=== PATIENT | female | born 1975 | race Caucasian/White ===

== ENCOUNTER 2020-02-29 15:57 | Outpatient (CLI) | payer BC, SELFPAY ==
--- NOTE | ~2020-02-29 | XR_ITS ---
EXAMINATION: XR knee LT 3V DATE: 02/29/2020 16:29 INDICATION: Left knee injury and pain. TECHNIQUE: 3 views of left knee were obtained. COMPARISON: Left knee radiographs 05/17/2005 FINDINGS: Bone alignment is normal. No fracture. There is mild tricompartmental osteoarthritis. There is a small knee joint effusion. IMPRESSION: 1. Mild left knee osteoarthritis. 2. Small left knee joint effusion. Reviewed, dictated and finalized at location A.
== END 2020-02-29 15:58 | disposition home or self-care (01) ==
PROVIDERS: PCP Family Medicine; Visit Provider Physician Assistant
DX: S89.90XA Unspecified injury of unspecified lower leg, initial encounter (principal); M17.12 Unilateral primary osteoarthritis, left knee; M25.462 Effusion, left knee
CPT/HCPCS: 73562

== ENCOUNTER → 2021-01-05 11:07 | Outpatient (CLI) | payer BC, SELFPAY ==
--- NOTE | ~2021-01-05 | MM_ITS ---
EXAMINATION: MM screening [facility] BI w gerber HISTORY: Screening mammogram TECHNIQUE: Craniocaudal and mediolateral oblique 3-D tomosynthesis images were obtained and synthetic 2-D images were generated. CAD analysis was submitted and interpreted. COMPARISON: 12/20/2018, 05/22/2016, 08/31/2013 BREAST PARENCHYMAL COMPOSITION: There are scattered areas of fibroglandular density. FINDINGS: There is no evidence of suspicious mass, calcification, or architectural distortion to sugg est malignancy in either breast. There has been no suspicious interval change. IMPRESSION: 1. No mammographic evidence of malignancy. 2. Recommend routine screening mammography in one year. BI-RADS Category 1: Negative Reviewed, dictated and finalized at location A.
== END ==
PROVIDERS: Visit Provider Nurse Practitioner Obstetrics & Gynecology
DX: Z12.31 Encounter for screening mammogram for malignant neoplasm of breast (principal)
CPT/HCPCS: 77063; 77067

== ENCOUNTER 2021-04-17 02:32 | Day surgery (SDC) | payer BC, SELFPAY ==
[2021-04-15 08:56] VITALS: BMI 32.5
[2021-04-17 06:11] VITALS: BP 133/74; PULSE 85; RESP 16; TEMP 36.9; O2SAT 99; BMI 33.7
[2021-04-17] MEDS: ACETAMINOPHEN 500 MG TABLET 1000 MG PO (06:32)
--- NOTE | 2021-04-17 06:39 | WPDANESEPPF ---
Anes - Initial Pre Proc Eval Procedure: Operation Date: 04/17/21 07:30 Proposed Procedures p Hysteroscopy with Endometrial Ablation - Jacqueline Menjivar MD Date/Time: 04/17/21 06:39 Surgeon: Jacqueline Menjivar MD Pre Op Diagnosis: menorrhaghia Patient Data Age: 45 Gender: F Height: 1.63 m Weight: 89.1 kg Last Vital Signs Temp 36.9 C 04/17/21 06:11 Pulse 85 04/17/21 06:11 Resp 16 04/17/21 06:11 BP 133/74 04/17/21 06:11 Pulse Ox 99 04/17/21 06:11 Allergies Allergy/AdvReac Type Severity Reaction Status Date / Time No Known Allergies Allergy Verified 04/17/21 06:28 Home Medications Medication Instructions Recorded Confirmed Type sumatriptan succinate 50 mg tablet See Rx Instructions .ROUTE 03/21/21 04/17/21 Rx .COMPLEX #10 tablet Patient hx anesthesia problems: none Family hx anesthesia problems: none PMFSH Past Medical History Medical History (Updated 04/17/21 @ 06:39 by Dale Mcneil MD) Anxiety SVT (supraventricular tachycardia) Surgical History Surgical History H/O cardiac radiofrequency ablation Social History Social History Smoking status: Never smoker Second hand tobacco smoke exposure: No Alcohol intake: current Substance use: never Living arrangements: with family Gender identity (if verbalized by the patient): Female Sexual Orientation (if Verbalized by the Patient): Straight or Heterosexual Spiritual care concerns: No Anes - Eval Final PreProcedure Day of Procedure 04/17/21 06:39 Patient weight: obese Heart: regular rate and rhythm Lungs: clear to auscultation Airway: Mallampati scale class II Neurological: alert and oriented Last oral intake: >/= 8 hours ASA classification: II Emergent: no Anesthetic plan: proceed Anesthesia type and monitoring: general GIVS and standard monitoring Informed Consent: The patient's anesthetic plan and its attendant risks and benefits were discussed with the patient/family/POA. Questions were solicited and answers provided to the satisfaction of the patient/family/POA.
[2021-04-17] MEDS: LACTATED RINGERS 1,000 ML 30 ML IV CONT (06:45)
--- NOTE | 2021-04-17 07:23 | PM.IMHP ---
H&P: HPI History of Present Illness Date/Time: 04/17/21 07:23 Chief Complaint: menorrhagia Narrative: Itzel is a 45yo presenting for HSC and endometrial ablation. Has had long heavy periods with clots for a while now. Doing in OR due to anxiety and difficulty with exams. US was normal except EMB in Aprtil benign proliferative, US was normal except for fundal vascularity. Review of Systems Review of Systems: All systems reviewed & are unremarkable except as noted in HPI and below PMFSH Past Medical History Medical History (Updated 04/17/21 @ 07:26 by Jacqueline Menjivar MD) Anxiety SVT (supraventricular tachycardia) Surgical History Surgical History H/O cardiac radiofrequency ablation Social History Social History Smoking status: Never smoker Second hand tobacco smoke exposure: No Alcohol intake: current Substance use: never Living arrangements: with family Gender identity (if verbalized by the patient): Female Sexual Orientation (if Verbalized by the Patient): Straight or Heterosexual Spiritual care concerns: No Meds Home Medications and Allergies Home Medications Medication Instructions Recorded Confirmed Type sumatriptan succinate 50 mg tablet See Rx Instructions .ROUTE 03/21/21 04/17/21 Rx .COMPLEX #10 tablet Allergies Allergy/AdvReac Type Severity Reaction Status Date / Time No Known Allergies Allergy Verified 04/17/21 06:28 Vital Signs Vital Signs - 24 hr 04/17/21 06:11 Temperature 98.4 F Pulse Rate 85 Respiratory Rate 16 Blood Pressure 133/74 Pulse Oximetry 99 Exam Const: General: no acute distress Resp: Effort & Inspection: normal respiratory effort Auscultation: clear to auscultation bilaterally Cardio: Rate: regular rate Rhythm: regular rhythm GI: GI Palp: Yes Soft to palpation Extrem: General: normal to inspection Assessment and Plan Assessment and plan (1) Menorrhagia: Code(s): N92.0 - Excessive and frequent menstruation with regular cycle Status: Acute Additional Plan We previously discussed RBA to endometrial ablation, Itzel strongly wants to proceed. Curettage prior if fundal vascular area seen.
--- NOTE | 2021-04-17 07:27 | WPDHPUPDATE1 ---
History and Physical Update Update Date/Time: 04/17/21 07:27 History and Physical has been reviewed, including an updated exam of the patient. There are NO changes in the patient's condition. Risks, benefits, and alternatives have been discussed and questions answered. Patient agrees to proceed with procedure.
[2021-04-17] MEDS: BUPIVACAINE/EPINEPHRINE 0.25% 10 ML VIAL INFILTRATE (07:47)
--- NOTE | 2021-04-17 08:02 | W.PM.PROC2 ---
Procedure Note - Detailed Date of Procedure 04/17/21 Pre-op Diagnosis menorrhaghia Post-op Diagnosis same Procedure Performed Hysteroscopy and Novasure endometrial ablation Surgeon Jacqueline Menjivar MD Impersonator Character none Anesthesia MAC and local Indications menorrhagia and/or menometrorrhagia Description of Procedure The patient was taken to the operating room and placed in supine position. She received MAC anesthesia and was placed in dorsal lithotomy position in stirrups. A speculum was placed and the anterior lip of the cervix was grasped with a single tooth tenaculum. A paracervical block of 10cc of 0.25% marcaine with epinephrine was done. The uterus sounded to 9cm and the cervix was 4cm long, giving a uterine cavity length of 5cm. The Novasure device was set to this length. The cervix was sequentially dilated to an 8 Emelyn. The hysteroscope was inserted and the cavity visualized and appeared to be normal. The scope was removed and a sharp curettage was done due to fundal vascularity seen on US. The Novasure device inserted through the cervix easily. The device was activated and passed the cavity assessment. It ablated for 1 minute and 8 seconds. The device was removed, the hysteroscope was reinserted and the endometrium was noted to be blanched appropriately. The scope was once again removed. The tenaculum was removed and the cervix was made hemostatic with pressure. The speculum was removed. The patient was awakened from anesthesia and taken to the recovery room in stable condition. Estimated Blood Loss 5 Drains No Packing No Pathology yes Complications No immediate complications Condition stable Disposition same day
[2021-04-17 08:05] VITALS: BP 109/37; PULSE 51; RESP 16; O2SAT 96
[2021-04-17 08:35] VITALS: BP 110/56; PULSE 70; RESP 16; O2SAT 100
[2021-04-17 08:55] VITALS: BP 115/86; PULSE 64; RESP 16
== END 2021-04-17 09:11 | disposition home or self-care (01) ==
PROVIDERS: PCP Family Medicine; Visit Provider Obstetrics & Gynecology
PROC: 0U5B8ZZ Destruction of Endometrium, Via Natural or Artificial Opening Endoscopic (ICD-10-PCS; CPT 58563; principal; 2021-04-17 07:30)
DX: N92.0 Excessive and frequent menstruation with regular cycle (principal); E66.9 Obesity, unspecified; Z68.33 Body mass index [BMI] 33.0-33.9, adult
CPT/HCPCS: 58563; 88305; A9270; J2250; J2704; J3010; J7030; J7120

== ENCOUNTER → 2023-01-11 14:13 | Outpatient (CLI) | payer BC, SELFPAY ==
--- NOTE | ~2023-01-11 | MM_ITS ---
EXAMINATION: MM screening [facility] BI w gerber HISTORY: Screening mammogram TECHNIQUE: Craniocaudal and mediolateral oblique 3-D tomosynthesis images were obtained and synthetic 2-D images were generated. CAD analysis was submitted and interpreted. COMPARISON: January 05, 2021 bilateral screening mammogram January 04, 2019 limited left breast ultrasound December 20, 2018, May 22, 2016 bilateral screening mammogram examinations BREAST PARENCHYMAL COMPOSITION: The breasts are almost entirely fatty. FINDINGS: There is no evidence of suspicious mass, calcification, or architectural distortion to sugg est malignancy in either breast. There has been no suspicious interval change. IMPRESSION: 1. No mammographic evidence of malignancy. 2. Recommend routine screening mammography in one year. BI-RADS Category 1: Negative Reviewed, dictated and finalized at location A.
== END ==
PROVIDERS: PCP Internal Medicine; Visit Provider Obstetrics & Gynecology
DX: Z12.31 Encounter for screening mammogram for malignant neoplasm of breast (principal)
CPT/HCPCS: 77063; 77067

== ENCOUNTER 2024-02-04 19:35 | Emergency (ER) | payer BC, SELFPAY ==
--- NOTE | 2024-02-04 19:37 | ED.ANIMALBIT ---
HPI - Animal Bite General Chief Complaint: Wound/Laceration Stated Complaint: scratched by her cat Time Seen by Provider: 02/04/24 19:36 Source: patient Mode of arrival: ambulatory Limitations: no limitations History of Present Illness HPI narrative: Itzel is a 48-year-old female patient presenting to the clinic today with complaints of being scratched by her cat last night while she was sleeping. She reports something spooked the cat and the cat scratched her right cheek, right upper distal arm, and the right forearm. Related Data Allergies Allergy/AdvReac Type Severity Reaction Status Date / Time No Known Allergies Allergy Verified 02/04/24 20:03 Review of Systems Review of Systems: Pertinent positives per HPI. Patient denies any fever, chills, rash, headache, visual changes, dizziness, cough, runny nose, sore throat, shortness of breath, chest pain, palpitations, nausea, vomiting, diarrhea, constipation, abdominal pain, or any urinary issues. PMFSH Past Medical History Medical History Anxiety SVT (supraventricular tachycardia) Surgical History Surgical History H/O cardiac radiofrequency ablation Social History Social History Smoking status: Never smoker Second hand tobacco smoke exposure: No Alcohol intake: current Substance use: never Living arrangements: with family Gender identity (if verbalized by the patient): Female Sexual Orientation (if Verbalized by the Patient): Straight or Heterosexual Spiritual care concerns: No Comments At the time of my signature, I reviewed and agree with the nursing past medical, surgical, social, and family history. There is no relevant family history pertinent to the patient complaint. Exam Narrative: General: Well-developed, well nourished, in no apparent distress Head: Normocephalic, atraumatic. Cardio: Regular rate and rhythm, s1 and s2 normal, no murmur appreciated. Resp: Clear to auscultation bilaterally, no rhonchi, rales, wheezing or rubs. Integumentary: [place], warm, and dry, intact without lesion, superficial cat scratch wounds to the right cheek and right forearm. Puncture wounds to the right upper arm near the antecubital-right upper arm has localized induration around two puncture wounds and surrounding redness-area of redness was marked using a skin marker-no palpable fluctuant abscess at this time.Area of redness measure approx 8 cmx 7cm Course Course Emergency Course: Portions of this record may have been created with voice recognition software. Level of Care: Express Care Visit Vital Signs Vital signs: Vital Signs Temperature 36.3 C L 02/04/24 19:49 Pulse Rate 103 H 02/04/24 19:49 Respiratory Rate 16 02/04/24 19:49 Blood Pressure 136/95 H 02/04/24 19:49 Pulse Oximetry 99 02/04/24 19:49 Temperature 36.3 C L 02/04/24 19:49 Pulse Rate 103 H 02/04/24 19:49 Respiratory Rate 16 02/04/24 19:49 Blood Pressure 136/95 H 02/04/24 19:49 Pulse Oximetry 99 02/04/24 19:49 Vital signs reviewed MDM - Animal Bite MDM Narrative Medical decision making narrative: At the time of visit patient is resting comfortably on the exam table. Patient appears to be nontoxic. Supportive measures were discussed with the patient and they voiced understanding discharge instructions and agrees to treatment plan. Return precautions reviewed Differential Diagnosis Differential diagnosis: Likely bite by animal, cat bite and other (Cat scratch) Discharge Plan Discharge Clinical Impression: Cat scratch of multiple sites Patient Disposition: Home, Self-Care Condition: Stable Instructions: Antibiotic Form, Wound Infection (ED), Cat Scratch Disease (ED) Additional Instructions: Keep area clean and dry Take Augmentin as prescribed Tda
[2024-02-04 19:49] VITALS: BP 136/95; PULSE 103; RESP 16; TEMP 36.3; O2SAT 99
[2024-02-04] MEDS: TETANUS,DIPHTHERIA,AC PERTUSSIS ADULT (0.5 ML) BOOSTRIX IM (19:52)
== END 2024-02-04 20:12 | disposition home or self-care (01) ==
PROVIDERS: Emergency Provider Nurse Practitioner Family; PCP Internal Medicine
DX: S00.81XA Abrasion of other part of head, initial encounter (principal); S50.811A Abrasion of right forearm, initial encounter; W55.03XA Scratched by cat, initial encounter; Z23 Encounter for immunization
CPT/HCPCS: 90471; 90715; 99213; G0463

== ENCOUNTER 2024-06-11 13:46 | Outpatient (CLI) | payer BC, SELFPAY ==
--- NOTE | ~2024-06-11 | MM_ITS ---
EXAMINATION: MM screening [facility] BI w gerber HISTORY: Screening TECHNIQUE: Craniocaudal and mediolateral oblique 3-D tomosynthesis images were obtained and synthetic 2-D images were generated. CAD analysis was submitted and interpreted. COMPARISON: Comparison to multiple prior studies sequentially, with oldest reviewed study dated 11/2015. BREAST PARENCHYMAL COMPOSITION: Not dense: There are scattered areas of fibroglandular density. FINDINGS: There is no evidence of suspicious mass, calcification, or architectural distortion to sugg est malignancy in either breast. There has been no suspicious interval change. IMPRESSION: 1. No mammographic evidence of malignancy. 2. Recommend routine screening mammography in one year. BI-RADS Category 1: Negative Reviewed, dictated and finalized at location B.
== END 2024-06-11 13:47 | disposition home or self-care (01) ==
PROVIDERS: PCP Internal Medicine; Visit Provider Obstetrics & Gynecology
DX: Z12.31 Encounter for screening mammogram for malignant neoplasm of breast (principal)
CPT/HCPCS: 77063; 77067

== ENCOUNTER 2025-02-01 18:45 | Emergency (ER) | payer BC, SELFPAY | END 2025-02-01 19:42 | disposition home or self-care (01) | PROVIDERS: Emergency Provider Nurse Practitioner Family; PCP Internal Medicine | DX: S93.501A Unspecified sprain of right great toe, initial encounter (principal); X58.XXXA Exposure to other specified factors, initial encounter; Y93.16 Activity, rowing, canoeing, kayaking, rafting and tubing | CPT/HCPCS: 99213; G0463 ==

== ENCOUNTER 2025-06-14 11:40 | Outpatient (CLI) | payer BC, SELFPAY ==
--- NOTE | ~2025-06-14 | MM_ITS ---
EXAMINATION: MM screening [facility] BI w gerber HISTORY: Screening TECHNIQUE: Craniocaudal and mediolateral oblique 3-D tomosynthesis images were obtained and synthetic 2-D images were generated. CAD analysis was submitted and interpreted. COMPARISON: Comparison to multiple prior studies sequentially, with oldest reviewed study dated , 05/22/2016 BREAST PARENCHYMAL COMPOSITION: The breasts are almost entirely fatty. FINDINGS: There is no evidence of suspicious mass, calcification, or architectural distortion to suggest malignancy in either breast. IMPRESSION: 1. No mammographic evidence of malignancy. 2. Recommend routine screening mammography in one year. BI-RADS Category 1: Negative Reviewed, dictated and finalized at location B.
--- OUTSIDE RECORDS SUMMARY | 2025-06-14 11:43 | XMS_ITS | Clinical Summary ---
Author Organization [facility] [place] [address] Address [address] [place] [address] Care Team Providers Care General Duty Nurse Name Role Phone Renay López MD Primary Care Provider [phone] Allergies Active Allergy Reactions Criticality Noted Date Comments Propranolol Fatigue Low 11/28/2023 Sertraline Headache Low 10/13/2022 Venlafaxine Other (See comments) Low 10/19/2022 Medications SUMAtriptan (IMITREX) 50 mg tabletIndicatio ns:Migraine TAKE 1 TABLET BY MOUTH AT ONSET OF HEADACHE. REPEAT IN 2 HOURS NEEDED FOR HEADACHE. MAX 2 TAB DAY 3 9 Active aspirin 81 mg enteric coated tabletIndicatio ns:prevention of thrombosis Take 1 tablet (81 mg total) by mouth daily 30 tablet 2 9 Active Additional Information Patient not taking.Reported on 04/09/2025 cholecalciferol (VITAMIN D-3) 50,000 unit capsule Take 50,000 Units by mouth once a week 9 Active propranoloL (INDERAL) 10 mg tablet Take 5 mg by mouth 2 (two) times a day 3 Active ALPRAZolam (XANAX) 0.25 mg tablet TAKE 1 TABLET BY MOUTH 15 MINUTES PRIOR TO YOUR FLIGHT. 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 Differential diagnosis includes AVNRT, AVRT (with concealed retrograde accessory pathway conduction), and atrial tachycardia/flutter. Her symptoms have been worsening. She has been intolerant of beta-clarita therapy. We discussed additional options for management, and the patient is interested in pursuing EP study and ablation. I discussed the risks and benefits, and the patient would like to proceed. My office will make the appropriate arrangements. Palpitations 11/15/2018 PVC's (premature ventricular contractions) 11/15 Encounters Date Type Department Care Team Description 04/09/2025 7:00 PM CDT Office Visit [facility] [address] [address] Zunilda Chan, LANDRY Herpes zoster without complication (Primary Dx) from Last 3 Months Immunizations Immunization Administration Dates Next Due Influenza, Quadrivalent, Spl it, Preservative Free, Intramuscular 05/24/2020 Surgical History Surgery Date Site/Laterality Comments OTHER SURGICAL HISTORY Arrhythmias (AVNRT SVT): Medical History Medical History Date Comments Hx Other Medical Arrhythmias (AV NRT SVT) Adiposity Obesity Arrhythmia Supraventricular tachycardia Family History Medical History Relation Name Comments Sudden Father 2 Sudden ; C ause of : Sudden Relation Name Status Comments Father 1 (Age 56) Father 2 Social History Tobacco Use Types Packs/Day Years Used Date Smoking Tobacco: Never Smokeless Tobacco: Never Alcohol Use Standard Drinks/Week Comments Yes 0 (1 standard drink = 0.6 oz pur e alcohol) Comments Unknown Sex and Gender Information Value Date Recorded Sex Assigned at Not on file Legal Sex Female 12:54 AM TENTER Gender Identity Not on file Sexual Orientation Not on file Obstetrics History Last Filed Vital Signs Vital Sign Reading Time Taken Comments Blood Pressure 120/82 04/09/2025 6:52 PM CDT Pulse 77 04/09/2025 6:52 PM CDT Temperature 36.6 C (97.8 F) 04/09/2025 6:52 PM CDT Respiratory Rate 20 04/09/2025 6:52 PM CDT Oxygen Saturation 99% 04/09/2025 6:52 PM CDT Inhaled Oxygen Concentration - - Weight 88.5 kg (195 lb) 04/09/2025 6:52 PM CDT Height 162.6 cm (5' 4) 01/22/2023 8:54 AM CDT Body Mass Index 33.47 01/22/2023 8:54 AM CDT Plan of Treatment Health Maintenance Due Date Last Done Comments Cervical Cancer Screening 1973 Colon Cancer Screening-Colonoscopy 1973 Depression Screening 1973 Hepatitis C Screening 1973 Hepatitis B Screening 1991 Regular Well Visit/Exam 18-64 1991 Zoster Vaccine (1 of 2) 2023 Covid-19 Vaccine (4 - 2024-2 6 season) 2025 07/19/2021, 12/05/2020, 11/14/2020 Influenza Vaccine (#1) 2025 , 08/24/2022, 05/24/2020 Breast Cancer Screening-Mammogram 06/11/2025 06/11/2024 DTaP/Tdap/Td Vaccine (2 - Td or Tdap) 09/29/2032 09/29/2022 Pneumococcal vaccine <65 Aged Out No longer eligible based on patient's age to complete this topic Insurance [employer] [facility] [facility] [employer] Care Teams General Duty Nurse Relationship Specialty Start Date End Date Renay López MD PCP - General 09/25/08
--- OUTSIDE RECORDS SUMMARY | 2025-06-14 11:43 | XMS_ITS | Clinical Summary ---
Author Organization [facility] [employer] Address [address] [place] [address] Care Team Providers Care Motor Vehicle Operator Road Supervisor Name Role Phone Renay López MD Primary Care Provider [phone] Source Comments [facility] [employer],non-owned Affiliates and Associated Physician Practices is amultiple site organization consisting of ambulatory clinics and hospital sitesin [place], [place], [place] and [place]. This disclosure is being madepursuant to the Care Everywhere program and may not contain all information available regarding this patient. Last updated 18.[facility] [employer] Allergies No known active allergies Medications * Be aware that medications may not be up to date on this document. Alwaysverify current medications with the patient. SUMAtriptan Succinate (IMITREX PO) Active Family History Medical History Relation Name Comments Other - Gastrointestinal Father tea r in intestine, at 56. Relation Name Status Comments Father Social History Tobacco Use Types Packs/Day Years Used Date Smoking Tobacco: Never Smokeless Tobacco: Never Comments No Sex and Gender Information Value Date Recorded Sex Assigned at Not on file Legal Sex Female 11:52 AM CDT Gender Identity Not on file Sexual Orientation Not on file Last Filed Vital Signs Vital Sign Reading Time Taken Comments Blood Pressure 124/80 11/18/2019 2:10 PM CLIMBING GUIDE Pulse 74 11/18/2019 2:10 PM CLIMBING GUIDE Temperature 36.8 C (98.2 F) 11/18/2019 2:10 PM CLIMBING GUIDE Respiratory Rate 16 11/18/2019 2:10 PM CLIMBING GUIDE Oxygen Saturation 98% 11/18/2019 2:10 PM CLIMBING GUIDE Inhaled Oxygen Concentration - - Weight 86.2 kg (190 lb) 11/18/2019 2:10 PM CLIMBING GUIDE Height 162.6 cm (5' 4) 11/18/2019 2:10 PM CLIMBING GUIDE Body Mass Index 32.61 11/18/2019 2:10 PM CLIMBING GUIDE Plan of Treatment Health Maintenance Due Date Last Done Comments COLOGUARD (AGES 45-75) - COL ON CA SCREENING 1973 COLON MONITORING 1973 COLONOSCOPY - COLON CA SCREENING 1973 CT COLONOGRAPHY - COLON CA SCREENING 1973 Colorectal Cancer Screening 1973 FIT - COLON CA SCREENING 1973 FLEX SIG - COLON CA SCREENING 1973 MAMMOGRAM 1973 HIV SCREENING 1988 HEPATITIS C SCREENING 06/24/1991 DTAP/TDAP/TD VACCINES (1 - Tdap) 1992 HEPATITIS B VACCINE (1 of 3 - 19+ 3-dose series) 1992 PAP SMEAR 1994 SCREENING FOR DIABETES 05/22/2019 PNEUMOCOCCAL VACCINE 50+ (1 of 1 - PCV) 2023 ZOSTER VACCINE (1 of 2) 2023 DEPRESSION SCREENING 09/19/2024 COVID-19 VACCINE (4 - 2024-2 6 season) 2025 07/19/2021, 12/05/2020, 11/14/2020 INFLUENZA VACCINE (#1) 2025 2, 05/24/2020 LIPID TESTING 11/27/2028 11/28/2023 HIB VACCINE Aged Out No longer eligi ble based on patient's age to complete this topic HPV VACCINE Aged Out No longer eligi ble based on patient's age to complete this topic MENINGOCOCCAL (Group B) VACCINE SHARED DECISION-MAKING Aged Out No longer eligible based on patient's age to complete this topic MENINGOCOCCAL GROUPS A/C/Y/W VACCINE Aged Out No longer eligible b ased on patient's age to complete this topic Insurance [facility] Care Teams Motor Vehicle Operator Road Supervisor Relationship Specialty Start Date End Date Renay López MD [address] [place] [address] PCP - General Family Medicine 01/18/17
== END 2025-06-14 11:41 | disposition home or self-care (01) ==
LOC: CHSIMG 11:41
PROVIDERS: PCP Internal Medicine; Visit Provider Internal Medicine
DX: Z12.31 Encounter for screening mammogram for malignant neoplasm of breast (principal)
CPT/HCPCS: 77063; 77067